=== PATIENT | female | born 1970 | race Caucasian/White ===

== ENCOUNTER → 2017-08-09 | Outpatient (CLI) | payer BC ==
--- NOTE | 2017-08-13 12:08 | PCVCIMAG ---
APPROVED REPORT Study performed: 08/09/2017 08:18:00 EXAM: Comprehensive 2D, Doppler, and color-flow Echocardiogram Patient Location: Echo lab Status: routine BSA: 1.82 HR: 61 bpmBP: 104/78 mmHg Rhythm: PVC's Other Information Study Quality: Good Indications PVC's, Hyperlipidemia 2D Dimensions LVEF(%): 74.50 (>50%) IVSd: 7.53 (7-11mm)LVOT Diam: 18.84 (18-24mm) LVDd: 46.81 mm LVPWs: 29.79 mm PWd: 5.65 (7-11mm)Ascending Ao: 33.10 (22-36mm) LVDs: 26.52 (25-40mm) Left Atrium: 31.20 (27-40mm) Aortic Root: 29.36 mm LV Single Plane 4CH: 66.68 % LV Single Plane 2CH: 69.40 %Campbell's LVEF: 68.04 % Biplane EF: 68.2 % Volumes Left Atrial Volume (Systole) Single Plane 4CH: 38.39 mLSingle Plane 2CH: 42.93 mL LA ESV Index: 24.00 mL/m2 Aortic Valve AoV Peak Jonas.: 1.21 m/s AO Peak Gr.: 5.90 mmHgLVOT Max P.67 mmHg LVOT Max V: 0.96 m/s SEN Vmax: 2.20 cm2 Mitral Valve E/A Ratio: 1.1 MV Decel. Time: 206.17 ms MV E Max Jonas.: 0.84 m/s MV A Jonas.: 0.74 m/s IVRT: 117.65 ms TDI E/Lateral E': 7.64E/Medial E': 10.50 Medial E' Jonas.: 0.08 m/s Lateral E' Jonas.: 0.11 m/s Pulmonary Valve PV Peak Gr.: 2.88 mmHg Pulmonary Vein P Vein S: 0.73 m/sP Vein A: 0.37 m/s P Vein D: 0.41 m/sP Vein A Dur.: 51.9 msec P Vein S/D Ratio: 1.78 Tricuspid Valve TR Peak Jonas.: 2.23 m/s TR Peak Gr.: 19.97 mmHg Left Ventricle The left ventricle is normal size. There is normal LV segmental wall motion. There is normal left ventricular wall thickness. Left ventricular systolic function is normal. The left ventricular ejection fraction is within the normal range. LVEF is 65%. The left ventricular diastolic function is normal. Right Ventricle The right ventricle is normal size. The right ventricular systolic function is normal. Atria The left atrium size is normal. The right atrium size is normal. Aortic Valve The aortic valve is normal in structure. No aortic regurgitation is present. There is no aortic valvular stenosis. Mitral Valve The mitral valve is normal in structure. Mild mitral regurgitation. No evidence of mitral valve stenosis. Tricuspid Valve The tricuspid valve is normal in structure. Trace tricuspid regurgitation. Pulmonary artery pressure is 27mmhg. Pulmonic Valve The pulmonary valve is normal in structure. Trace pulmonic regurgitation. Great Vessels The aortic root is normal in size. IVC is normal in size and collapses with >50% inspiration Pericardium There is no pericardial effusion. <Conclusion> The left ventricle is normal size. LVEF is 65%. The aortic valve is normal in structure. The mitral valve is normal in structure. Mild mitral regurgitation. The tricuspid valve is normal in structure. Trace tricuspid regurgitation. Pulmonary artery pressure is 27mmhg. The pulmonary valve is normal in structure. Trace pulmonic regurgitation.
--- NOTE | 2017-08-13 17:09 | PCVCIMAG ---
APPROVED REPORT Exam: Nuclear Stress Test Indication: Chest Pain, Dyspnea, Palpitations Patient Location: Out Patient Stress Nurse: Susana Westfall RN, Emily Arreola RN [place] Tech:Stanley Roland NMTCB Ht: 5 ft 6 in Wt: 160 lbs BSA: 1.82 m2 HR: 71 bpm BP: 128/83 mmHg BMI: 25.8 Rhythm: NSR, PVC's Medical History Medical History: Hyperlipidemia, Medications: Simvastatin Allergies: See EPIC. None that interfere with test Pretest Chest Pain Characteristics: No chest pain Exercise History: Physically active NM EXAM: Myocardial Perfusion REST/STRESS Imaging Protocol: Rest Tc-99m/Stress Tc-99m 1 day Resting Data Rest SPECT myocardial perfusion imaging was performed in supine position 45 minutes following the intravenous injection of 10.2 mCi of Tc-99m Sestamibi. Time of rest injection: 0845 Date: 08/09/2017 Exercise Stress At peak stress, the patient was injected intravenously with 30.6mCi of Tc-99m Sestamibi. Time of stress injection: 1000 Date: 08/09/2017 The images were gated to evaluate regional wall motion and calculate left ventricular ejection fraction. Study Data Post stress, the left ventricular ejection was 78%.. SSS: 0 SRS: 0 SDS: 0 TID = 0.68. Perfusion There is a medium area of moderately reduced uptake in the mid and apical segment of the anterior wall which is seen on the stress images as well as the resting images. This area thickens and moves normally and is most consistent with attenuation artifact. Wall Motion Normal left ventricular wall motion. Nuclear Conclusion 1. LOW RISK STUDY Interpreted by: Simin Morales MD Electronically Approved: 08/13/2017 17:07:42 Stress Test Details Stress Test: Exercise stress testing was performed using a Moo protocol. HR Resting HR: 71 bpmMax Heart Rate (APMHR): 166 bpm Max HR Achieved: 151 bpmTarget HR (85% APMHR): 141 bpm % of APMHR: 90 Recovery HR: 104 bpm BP Resting BP: 128/83 mmHg Max BP: 158/82 mmHg ECG Resting ECG: Sinus Rhythm Stress ECG: Sinus Tachycardia Arrhythmia: PVCs Recovery ECG: Sinus Tachycardia Clinical Reason for Termination: Fatigue Stress Symptoms: Dyspnea, Fatigue Exercise duration: 1 min sec Exercise capacity: 13.70 METs Symptoms resolved during recovery. Stress ECG Conclusion 1. ADEQUATE RESPONSE TO IV LEXISCAN 2. INADEQUATE HEART RATE FOR ECG DIAGNOSIS <Conclusion> 1. ADEQUATE RESPONSE TO IV LEXISCAN 2. INADEQUATE HEART RATE FOR ECG DIAGNOSIS
== END | disposition home or self-care (01) ==
LOC: EDBD → PCVCIMAG 08:02
PROVIDERS: ATTEND Internal Medicine
DX: I08.1 Rheumatic disorders of both mitral and tricuspid valves (principal); I49.3 Ventricular premature depolarization; E78.5 Hyperlipidemia, unspecified
CPT/HCPCS: 78452; 93017; 93306; A9500